=== PATIENT | male | born 1960 | race Caucasian/White ===

== ENCOUNTER → 2022-04-01 16:20 | Outpatient (CLI) | payer OTHER, SELFPAY ==
[2022-04-01 18:15] LABS: Hematocrit 43.9 % (41-53); Hemoglobin 15.3 g/dL (13.5-17.5); Mean Corpuscular HGB Conc 34.9 % (30-36); Mean Corpuscular Hemoglobin 29.9 PG (26-34); Mean Corpuscular Volume 85.7 fL (80-100); Platelet Count 275 X10^3/uL (150-400); Red Blood Cell Count 5.13 X10^6/uL (4.5-5.9); Red Cell Distribution Width 13.3 % (11.6-14.8); White Blood Cell Count 9.7 X10^3/uL (4.5-11.0)
[2022-04-01 19:04] LABS: Alanine Aminotransferase 50 IU/L (<50); Albumin 4.4 g/dL (3.5-5.0); Albumin Globulin Ratio 1.3 (1.0-2.8); Alkaline Phosphatase 78 U/L (38-126); Aspartate Aminotransferase 45 IU/L (17-59); BUN Creatinine Ratio 18.9 (6-22); Bilirubin Total 0.7 mg/dL (0.2-1.3); Blood Urea Nitrogen 14 mg/dL (9-20); Calcium 9.1 mg/dL (8.4-10.2); Carbon Dioxide 30 mmol/L (22-32); Chloride 100 mmol/L (98-107); Cholesterol 131 mg/dL (140-199); Estimated Glomerular Filt Rate > 60 mL/min (>60); Globulin 3.3 g/dL (1.7-4.1); Glucose 102 mg/dL (80-110); HDL Cholesterol 32 mg/dL (40-60); HEMOLYSIS < 15 (0-50); LDL Cholesterol Calculated 72 mg/dL (<100); Potassium 3.5 mmol/L (3.4-5.1); Sodium 138 mmol/L (137-145); Total Protein 7.7 g/dL (6.3-8.2); Triglycerides 136 mg/dL (35-150)
[2022-04-01 19:12] LABS: Creatinine Urine Random 171.3 mg/dL
[2022-04-01 19:14] LABS: Microalbumi Creatinin Ratio Ur 10.5 ug/mg CR (<30); Microalbumin Urine Random 1.8 mg/dL (0-1.6)
[2022-04-01 19:29] LABS: TSH w/ Reflex to FT4 1.23 uIU/mL (0.47-4.68)
[2022-04-01 21:13] LABS: Hemoglobin A1C% w Est Avg Glu 8.8 % (4.0-6.0)
== END ==
PROVIDERS: PCP Internal Medicine; Referring Provider Internal Medicine; Visit Provider Internal Medicine
DX: E11.69 Type 2 diabetes mellitus with other specified complication (principal); E78.2 Mixed hyperlipidemia; E78.5 Hyperlipidemia, unspecified; I10 Essential (primary) hypertension
CPT/HCPCS: 36415; 80053; 80061; 82043; 82570; 83036; 84443; 85027

== ENCOUNTER → 2022-07-15 09:09 | Outpatient (CLI) | payer OTHER, SELFPAY ==
[2022-07-15 10:44] LABS: Hemoglobin A1C% w Est Avg Glu 9.4 % (4.0-6.0)
[2022-07-15 11:10] LABS: Aspartate Aminotransferase 35 IU/L (17-59); BUN Creatinine Ratio 18.8 (6-22); Blood Urea Nitrogen 12 mg/dL (9-20); Calcium 9.5 mg/dL (8.4-10.2); Carbon Dioxide 28 mmol/L (22-32); Chloride 98 mmol/L (98-107); Cholesterol 120 mg/dL (140-199); Estimated Glomerular Filt Rate > 60 mL/min (>60); Glucose 179 mg/dL (80-110); HDL Cholesterol 33 mg/dL (40-60); HEMOLYSIS < 15 (0-50); LDL Cholesterol Calculated 68 mg/dL (<100); Potassium 4.2 mmol/L (3.4-5.1); Sodium 138 mmol/L (137-145); Triglycerides 94 mg/dL (35-150)
[2022-07-15 11:39] LABS: Prostate Specific Antigen 0.603 ng/mL (0.10-4.00)
== END ==
PROVIDERS: PCP Internal Medicine; Referring Provider Internal Medicine; Visit Provider Internal Medicine
DX: Z00.00 Encounter for general adult medical examination without abnormal findings (principal); E78.2 Mixed hyperlipidemia; E11.69 Type 2 diabetes mellitus with other specified complication; E78.5 Hyperlipidemia, unspecified; I10 Essential (primary) hypertension
CPT/HCPCS: 36415; 80048; 80061; 83036; 84153; 84450

== ENCOUNTER → 2022-12-23 07:19 | Outpatient (CLI) | payer OTHER, SELFPAY ==
[2022-12-23 08:34] LABS: BUN Creatinine Ratio 23.8 (6-22); Blood Urea Nitrogen 15 mg/dL (9-20); Calcium 8.5 mg/dL (8.4-10.2); Carbon Dioxide 28 mmol/L (22-32); Chloride 104 mmol/L (98-107); Estimated Glomerular Filt Rate > 60 mL/min (>60); Glucose 145 mg/dL (80-110); HEMOLYSIS < 15 (0-50); Potassium 4.1 mmol/L (3.4-5.1); Sodium 138 mmol/L (137-145)
[2022-12-23 09:21] LABS: Vitamin B12 737 pg/mL (239-931)
== END ==
PROVIDERS: PCP Internal Medicine; Referring Provider Internal Medicine; Visit Provider Internal Medicine
DX: E53.8 Deficiency of other specified B group vitamins (principal); E78.5 Hyperlipidemia, unspecified; E11.69 Type 2 diabetes mellitus with other specified complication; I10 Essential (primary) hypertension
CPT/HCPCS: 36415; 80048; 82607; 83036

== ENCOUNTER → 2023-10-10 16:43 | Outpatient (CLI) | payer OTHER, SELFPAY ==
[2023-10-10 17:35] LABS: Hemoglobin A1C% w Est Avg Glu 6.9 % (4.0-6.0)
[2023-10-10 17:50] LABS: Aspartate Aminotransferase 36 IU/L (17-59); BUN Creatinine Ratio 20.9 (6-22); Blood Urea Nitrogen 14 mg/dL (9-20); Calcium 9.5 mg/dL (8.4-10.2); Carbon Dioxide 25 mmol/L (22-32); Chloride 99 mmol/L (98-107); Cholesterol 127 mg/dL (140-199); Estimated Glomerular Filt Rate > 60 mL/min (>60); Glucose 87 mg/dL (80-110); HDL Cholesterol 33 mg/dL (40-60); HEMOLYSIS < 15 (0-50); LDL Cholesterol Calculated 72 mg/dL (<100); Potassium 3.7 mmol/L (3.4-5.1); Sodium 135 mmol/L (137-145); Triglycerides 110 mg/dL (35-150)
== END ==
PROVIDERS: PCP Internal Medicine; Referring Provider Internal Medicine; Visit Provider Internal Medicine
DX: E78.2 Mixed hyperlipidemia (principal); I10 Essential (primary) hypertension; E11.69 Type 2 diabetes mellitus with other specified complication; E78.5 Hyperlipidemia, unspecified
CPT/HCPCS: 36415; 80048; 80061; 83036; 84450

== ENCOUNTER → 2024-01-11 08:49 | Outpatient (CLI) | payer OTHER, SELFPAY ==
[2024-01-11 09:37] LABS: Hemoglobin A1C% w Est Avg Glu 6.9 % (4.0-6.0)
[2024-01-11 10:13] LABS: BUN Creatinine Ratio 20.3 (6-22); Blood Urea Nitrogen 14 mg/dL (9-20); Calcium 9.6 mg/dL (8.4-10.2); Carbon Dioxide 31 mmol/L (22-32); Chloride 103 mmol/L (98-107); Estimated Glomerular Filt Rate > 60 mL/min (>60); Glucose 125 mg/dL (80-110); HEMOLYSIS < 15 (0-50); Potassium 4.1 mmol/L (3.4-5.1); Sodium 139 mmol/L (137-145)
[2024-01-11 10:16] LABS: Creatinine Urine Random 53.6 mg/dL
[2024-01-11 10:27] LABS: Microalbumin Urine Random < 0.6 mg/dL (0-1.6)
[2024-01-11 10:45] LABS: Prostate Specific Antigen 0.616 ng/mL (0.10-4.00)
== END ==
PROVIDERS: PCP Internal Medicine; Referring Provider Internal Medicine; Visit Provider Internal Medicine
DX: E11.69 Type 2 diabetes mellitus with other specified complication (principal); N40.1 Benign prostatic hyperplasia with lower urinary tract symptoms; E78.5 Hyperlipidemia, unspecified; I10 Essential (primary) hypertension; N13.8 Other obstructive and reflux uropathy
CPT/HCPCS: 36415; 80048; 82043; 82570; 83036; 84153

== ENCOUNTER → 2024-07-17 09:21 | Outpatient (CLI) | payer OTHER, SELFPAY ==
[2024-07-17 10:27] LABS: Hemoglobin A1C% w Est Avg Glu 6.8 % (4.0-6.0)
[2024-07-17 10:49] LABS: Aspartate Aminotransferase 30 IU/L (17-59); BUN Creatinine Ratio 17.9 (6-22); Blood Urea Nitrogen 14 mg/dL (9-20); Carbon Dioxide 31 mmol/L (22-32); Chloride 102 mmol/L (98-107); Cholesterol 112 mg/dL (140-199); Estimated Glomerular Filt Rate > 60 mL/min (>60); Glucose 126 mg/dL (80-110); HDL Cholesterol 33 mg/dL (40-60); HEMOLYSIS < 15 (0-50); LDL Cholesterol Calculated 60 mg/dL (<100); Potassium 4.1 mmol/L (3.4-5.1); Sodium 135 mmol/L (137-145); Triglycerides 94 mg/dL (35-150)
== END ==
PROVIDERS: PCP Internal Medicine; Referring Provider Internal Medicine; Visit Provider Internal Medicine
DX: E11.69 Type 2 diabetes mellitus with other specified complication (principal); E78.2 Mixed hyperlipidemia; E78.5 Hyperlipidemia, unspecified
CPT/HCPCS: 36415; 80048; 80061; 83036; 84450

== ENCOUNTER → 2025-01-06 07:27 | Outpatient (CLI) | payer MEDICARE, SELFPAY ==
[2025-01-06 08:31] LABS: Hemoglobin A1C% w Est Avg Glu 6.8 % (4.0-6.0)
[2025-01-06 08:31] LABS: Creatinine Urine Random 71.07 mg/dL
[2025-01-06 08:33] LABS: Aspartate Aminotransferase 35 IU/L (17-59); BUN Creatinine Ratio 21.7 (6-22); Blood Urea Nitrogen 15 mg/dL (9-20); Calcium 9.2 mg/dL (8.4-10.2); Carbon Dioxide 27 mmol/L (22-32); Chloride 104 mmol/L (98-107); Cholesterol 119 mg/dL (140-199); Estimated Glomerular Filt Rate > 60 mL/min (>60); Glucose 148 mg/dL (80-110); HDL Cholesterol 30 mg/dL (40-60); HEMOLYSIS < 15 (0-50); LDL Cholesterol Calculated 64 mg/dL (<100); Potassium 4.4 mmol/L (3.4-5.1); Sodium 139 mmol/L (137-145); Triglycerides 127 mg/dL (35-150)
[2025-01-06 08:36] LABS: Microalbumin Urine Random 0.7 mg/dL (0-1.6)
== END ==
PROVIDERS: PCP Internal Medicine; Referring Provider Internal Medicine; Visit Provider Internal Medicine
DX: E11.69 Type 2 diabetes mellitus with other specified complication (principal); N40.1 Benign prostatic hyperplasia with lower urinary tract symptoms; E78.5 Hyperlipidemia, unspecified; I10 Essential (primary) hypertension; N13.8 Other obstructive and reflux uropathy
CPT/HCPCS: 36415; 80048; 80061; 82043; 82570; 83036; 84153; 84450

== ENCOUNTER → 2025-07-25 14:35 | Outpatient (CLI) | payer MEDICARE, SELFPAY ==
[2025-07-25 16:25] LABS: Hemoglobin A1C% w Est Avg Glu 8.6 % (4.0-6.0)
[2025-07-25 16:47] LABS: Blood Urea Nitrogen 15 mg/dL (9-20); Calcium 9.4 mg/dL (8.4-10.2); Carbon Dioxide 26 mmol/L (22-32); Chloride 100 mmol/L (98-107); Estimated Glomerular Filt Rate > 60 mL/min (>60); Glucose 135 mg/dL (70-99); HEMOLYSIS < 15 (0-50); Potassium 3.8 mmol/L (3.4-5.1); Sodium 136 mmol/L (137-145)
== END ==
PROVIDERS: PCP Internal Medicine; Referring Provider Internal Medicine; Visit Provider Internal Medicine
DX: E11.69 Type 2 diabetes mellitus with other specified complication (principal); E78.5 Hyperlipidemia, unspecified
CPT/HCPCS: 36415; 80048; 83036